=== PATIENT | female | born 1985 | race Caucasian/White ===

== ENCOUNTER 2021-12-07 12:55 | Outpatient (CLI) | payer BC | END 2021-12-07 12:56 | disposition home or self-care (01) | LOC: MRI 12:55 | PROVIDERS: ATTEND Psychiatry & Neurology Neurology | DX: G40.201 Localization-related (focal) (partial) symptomatic epilepsy and epileptic syndromes with complex partial seizures, not intractable, with status epilepticus (principal); G93.9 Disorder of brain, unspecified | CPT/HCPCS: 70553; 95816; 95957 ==

== ENCOUNTER 2023-05-27 14:40 | Observation (INO) | payer BC ==
[2023-05-27] MEDS ORDERED: levETIRAcetam 500 MG/5 ML VIAL ONE (15:20)
[2023-05-27 15:41] LABS: #Monocytes 0.5 thou/uL (0.11-0.59); #Neutrophils 6.4 thou/uL (1.40-6.50); %Basophils 0.2 % (0.0-1.0); %Eosinophils 0.1 % (0.0-10.0); %Lymphocytes 18.2 % (21.0-51.0); %Monocytes 5.3 % (0.0-10.0); %Neutrophils 75.8 % (42.0-75.0); Hematocrit 41.9 % (36.0-47.0); Hemoglobin 13.8 g/dL (12.0-16.0); Mean Corpuscular HGB CONC 32.9 g/dL (32.0-36.0); Mean Corpuscular Hemoglobin 32.5 pg (27.0-31.0); Mean Corpuscular Volume 98.8 fl (78.0-98.0); Mean Platelet Volume 9.8 fL (7.4-10.4); Platelet Count 290 10x3/uL (130-400); RBC Distribution Width 12.3 % (11.5-14.5); Red Blood Cell (RBC) Count 4.24 mill/uL (4.20-5.40); White Blood Cell (WBC) Count 8.5 10x3/uL (4.8-10.8)
[2023-05-27 15:49] LABS: BHCG - Serum Negative (NEGATIVE); Pregs Control Background? CLEAR/WHITE (CLR/WHITE); Pregs Control Bar Appear? YES (CONTROL BAR)
[2023-05-27 16:04] LABS: ALT (SGPT) 9 U/L (8-55); AST (SGOT) 15 U/L (5-34); Albumin 4.3 g/dL (3.5-5.0); Alkaline Phosphatase 103 U/L (40-110); Anion Gap 14 mmol/L (10-20); BUN (Urea Nitrogen) 12 mg/dL (7.0-18.7); Bilirubin, Total 0.5 mg/dL (0.2-1.2); Calc. Creatinine Clearance 0 mL/min (70-130); Calcium 9.4 mg/dL (7.8-10.44); Carbon Dioxide 16 mmol/L (22-29); Chloride 111 mmol/L (98-107); Estimated GFR 60; Globulin 2.9 g/dL (2.4-3.5); Glucose 111 mg/dL (70-105); Potassium 3.4 mmol/L (3.5-5.1); Protein, Total 7.2 g/dL (6.0-8.3); Sodium 138 mmol/L (136-145)
[2023-05-27 17:32] LABS: Bacteria/HPF None Seen HPF (None Seen); Bilirubin Negative (Negative); Blood, Urine Trace (Negative); CAUTI Indications for Culture Dysuria,urgency,freq; Clarity Clear (Clear); Glucose, Urine (Dipstick) Normal (Negative); Ketone, Urine 20 mg/dL (Negative); Leukocyte Negative Leu/uL (Negative); Nitrite Negative (Negative); Protein, Urine (Dipstick) Negative (Neg-Trace); RBC/HPF 0-3 HPF (0-3); Specific Gravity, Urine 1.006 (1.002-1.036); Squamous Epithelial 0-3 HPF (0-3); Urobilinogen Normal mg/dL (Less than 2); WBC/HPF 0-3 HPF (0-3)
[2023-05-27 17:34] LABS: Urine Culture Reflex No No
[2023-05-27 18:38] LABS: SARS-CoV-2 NAA Rapid Test Not Detected (NotDetected)
[2023-05-27] MEDS ORDERED: Ondansetron PF 4 MG/2 ML Vial IVP PRN (19:01)
[2023-05-27] MEDS ORDERED: Ondansetron ODT 4 MG TAB PO PRN (19:01)
[2023-05-27] MEDS ORDERED: Acetaminophen 325 MG TAB PO PRN (19:01)
[2023-05-27] MEDS ORDERED: Lorazepam 2 MG/ML VIAL SLOW IVP PRN (19:01)
[2023-05-27] MEDS ORDERED: Lactated Ringer's 1,000 ML IV SCH (19:15)
[2023-05-27 20:02] LABS: Magnesium 2.1 mg/dL (1.6-2.6)
[2023-05-27] MEDS ORDERED: levETIRAcetam 500 MG TAB PO SCH ×2 (21:00)
[2023-05-27] MEDS: Atorvastatin Calcium 40 MG TAB PO SCH (22:32)
[2023-05-27] MEDS: Topiramate 100 MG TAB PO SCH (22:33)
[2023-05-27] MEDS: Divalproex Sodium DR 500 MG TAB PO SCH (22:33)
[2023-05-27] MEDS: Lacosamide 50 mg Tablet PO SCH (22:33)
[2023-05-27] MEDS: Apixaban 5 MG TAB PO SCH (22:33)
[2023-05-27] MEDS: Zonisamide 100 MG CAP PO SCH (22:34)
[2023-05-27 22:46] VITALS: BMI 32.8
[2023-05-28 05:13] LABS: #Basophils 0.1 thou/uL (0.0-0.2); #Eosinphils 0.1 thou/uL (0.0-0.7); #Monocytes 0.5 thou/uL (0.11-0.59); #Neutrophils 5.2 thou/uL (1.40-6.50); %Basophils 0.6 % (0.0-1.0); %Eosinophils 0.6 % (0.0-10.0); %Lymphocytes 31.8 % (21.0-51.0); %Monocytes 5.8 % (0.0-10.0); %Neutrophils 60.8 % (42.0-75.0); Hematocrit 45.6 % (36.0-47.0); Mean Corpuscular HGB CONC 32.9 g/dL (32.0-36.0); Mean Corpuscular Hemoglobin 32.4 pg (27.0-31.0); Mean Corpuscular Volume 98.5 fl (78.0-98.0); Mean Platelet Volume 10.1 fL (7.4-10.4); Platelet Count 287 10x3/uL (130-400); RBC Distribution Width 12.2 % (11.5-14.5); Red Blood Cell (RBC) Count 4.63 mill/uL (4.20-5.40); White Blood Cell (WBC) Count 8.5 10x3/uL (4.8-10.8)
[2023-05-28 05:34] LABS: Anion Gap 16 mmol/L (10-20); Calcium 9.7 mg/dL (7.8-10.44); Carbon Dioxide 13 mmol/L (22-29); Chloride 111 mmol/L (98-107); Potassium 3.6 mmol/L (3.5-5.1); Sodium 136 mmol/L (136-145)
[2023-05-28 05:42] LABS: BUN (Urea Nitrogen) 11 mg/dL (7.0-18.7); Calc. Creatinine Clearance 106 mL/min (70-130); Estimated GFR 69; Glucose 80 mg/dL (70-105)
[2023-05-28] MEDS ORDERED: Potassium Chloride 20 MEQ TAB PO SCH (08:00)
[2023-05-28] MEDS: Valsartan 80 MG TAB PO SCH (09:34)
[2023-05-28] MEDS: Divalproex Sodium DR 500 MG TAB PO SCH ×2 (09:35→21:01)
[2023-05-28] MEDS: Aspirin Chewable 81 MG TAB PO SCH (09:35)
[2023-05-28] MEDS: Folic Acid 1 MG TAB PO SCH (09:37)
[2023-05-28] MEDS: Lacosamide 50 mg Tablet PO SCH (09:37)
[2023-05-28] MEDS: Topiramate 100 MG TAB PO SCH ×2 (09:38→21:01)
[2023-05-28] MEDS: Apixaban 5 MG TAB PO SCH ×2 (09:38→21:00)
[2023-05-28] MEDS: levETIRAcetam 500 MG TAB PO SCH ×2 (09:38→21:00)
[2023-05-28] MEDS: Zonisamide 100 MG CAP PO SCH ×2 (13:52→20:59)
[2023-05-28] MEDS: Lacosamide 100 MG in Sodium Chloride 0.9% 50 ML IVPB SCH (20:59)
[2023-05-28] MEDS: Atorvastatin Calcium 40 MG TAB PO SCH (21:01)
[2023-05-29 05:06] LABS: #Basophils 0.1 thou/uL (0.0-0.2); #Eosinphils 0.1 thou/uL (0.0-0.7); #Monocytes 0.6 thou/uL (0.11-0.59); #Neutrophils 5.5 thou/uL (1.40-6.50); %Basophils 0.7 % (0.0-1.0); %Eosinophils 0.7 % (0.0-10.0); %Lymphocytes 26.4 % (21.0-51.0); %Monocytes 7.4 % (0.0-10.0); %Neutrophils 64.2 % (42.0-75.0); Hematocrit 48.7 % (36.0-47.0); Hemoglobin 15.8 g/dL (12.0-16.0); Mean Corpuscular HGB CONC 32.4 g/dL (32.0-36.0); Mean Corpuscular Hemoglobin 32.5 pg (27.0-31.0); Mean Corpuscular Volume 100.2 fl (78.0-98.0); Mean Platelet Volume 9.9 fL (7.4-10.4); Platelet Count 317 10x3/uL (130-400); RBC Distribution Width 12.4 % (11.5-14.5); Red Blood Cell (RBC) Count 4.86 mill/uL (4.20-5.40); White Blood Cell (WBC) Count 8.6 10x3/uL (4.8-10.8)
[2023-05-29 05:46] LABS: Anion Gap 14 mmol/L (10-20); BUN (Urea Nitrogen) 13 mg/dL (7.0-18.7); Calc. Creatinine Clearance 93 mL/min (70-130); Calcium 10.3 mg/dL (7.8-10.44); Carbon Dioxide 18 mmol/L (22-29); Chloride 111 mmol/L (98-107); Estimated GFR 59; Glucose 83 mg/dL (70-105); Potassium 3.7 mmol/L (3.5-5.1); Sodium 139 mmol/L (136-145)
[2023-05-29] MEDS: Lacosamide 100 MG in Sodium Chloride 0.9% 50 ML IVPB SCH (09:21)
[2023-05-29] MEDS: Valsartan 80 MG TAB PO SCH (09:35)
[2023-05-29] MEDS: levETIRAcetam 500 MG TAB PO SCH (09:36)
[2023-05-29] MEDS: Zonisamide 100 MG CAP PO SCH (09:36)
[2023-05-29] MEDS: Divalproex Sodium DR 500 MG TAB PO SCH (09:37)
[2023-05-29] MEDS: Aspirin Chewable 81 MG TAB PO SCH (09:37)
[2023-05-29] MEDS: Folic Acid 1 MG TAB PO SCH (09:38)
[2023-05-29] MEDS: Topiramate 100 MG TAB PO SCH (09:38)
[2023-05-29] MEDS: Apixaban 5 MG TAB PO SCH (09:40)
[2023-05-29 12:47] VITALS: BP 133/92; TEMP 98
[2023-05-30 16:15] LABS: Topiramate (Topamax) Test 7.2 ug/mL (2.0-25.0); Zonisamide 24.2 ug/mL (10.0-40.0)
[2023-05-31 16:13] LABS: Lacosamid/Vimpat 23.3 ug/mL (5.0-10.0)
== END 2023-05-29 13:40 | disposition home or self-care (01) ==
LOC: ERS 14:40 → 2SE 19:04
PROVIDERS: ADMIT Student in an Organized Health Care Education/Training Program; ATTEND Hospitalist
DX: G40.909 Epilepsy, unspecified, not intractable, without status epilepticus (principal); G40.919 Epilepsy, unspecified, intractable, without status epilepticus; I10 Essential (primary) hypertension; N17.9 Acute kidney failure, unspecified; E87.6 Hypokalemia; Z88.8 Allergy status to other drugs, medicaments and biological substances; Z86.73 Personal history of transient ischemic attack (TIA), and cerebral infarction without residual deficits; Z86.718 Personal history of other venous thrombosis and embolism; Z87.898 Personal history of other specified conditions; Z79.01 Long term (current) use of anticoagulants; Z79.82 Long term (current) use of aspirin; Z79.899 Other long term (current) drug therapy
CPT/HCPCS: 36415; 70450; 70553; 80048; 80053; 80177; 80201; 80203; 80339; 81001; 83735; 84146; 84443; 84703; 85025; 93005; 95816; 95819; 95957; 96365; 96367; 96376; C9254; G0378; G0480; J1953; J7120